=== PATIENT | female | born 1945 | race Caucasian/White ===

== ENCOUNTER 2016-09-09 11:01 | Outpatient (RCR) | payer MEDICARE, OTHER | END 2016-10-20 10:29 | disposition home or self-care (01) | LOC: PT 11:01 | DX: M99.06 Segmental and somatic dysfunction of lower extremity (principal); M54.5 Low back pain; M47.816 Spondylosis without myelopathy or radiculopathy, lumbar region ==

== ENCOUNTER → 2016-12-06 | Outpatient (CLI) | payer MEDICARE, OTHER | LOC: RAD 16:18 | DX: M54.30 Sciatica, unspecified side (principal) ==

== ENCOUNTER 2017-06-19 18:50 | Emergency (ER) | payer MEDICARE, OTHER ==
[2017-06-19] MEDS ORDERED: TYLENOL 500MG500 MG PO (19:02)
[2017-06-19] MEDS ORDERED: NORCO 325 MG-51 TA1 PO (20:30)
[2017-06-19 20:37] VITALS: BP 152/80
== END 2017-06-19 20:44 | disposition home or self-care (01) ==
LOC: ED 18:50
DX: S52.502A Unspecified fracture of the lower end of left radius, initial encounter for closed fracture (principal); W11.XXXA Fall on and from ladder, initial encounter; Y92.009 Unspecified place in unspecified non-institutional (private) residence as the place of occurrence of the external cause; M81.0 Age-related osteoporosis without current pathological fracture; T39.1X1A Poisoning by 4-Aminophenol derivatives, accidental (unintentional), initial encounter
CPT/HCPCS: A6448; J1885

== ENCOUNTER 2017-10-19 14:00 | Outpatient (RCR) | payer MEDICARE ==
[~2017-10-19 14:00] MED LIST: NORCO 325 MG-51 TA1 PO; TYLENOL 500MG500 MG PO
== END 2017-10-19 14:30 | disposition home or self-care (01) ==
LOC: OT 14:00
DX: S52.502D Unspecified fracture of the lower end of left radius, subsequent encounter for closed fracture with routine healing (principal)

== ENCOUNTER → 2021-05-14 | Outpatient (CLI) | payer MEDICARE, OTHER ==
[2021-05-14 15:56] LABS: BASO # 0.05 K/mm3 (0.02-0.10); EOS # 0.05 K/mm3 (0.04-0.40); EOS % 0.7 % (1.0-5.0); HEMATOCRIT 42.6 % (37.0-47.0); HEMOGLOBIN 13.5 g/dL (12.5-16.0); LYMPH# 1.12 K/mm3 (1.50-4.00); MEAN CELL VOLUME 101 fl (78-100); MEAN CORPUSCULAR HEMOGLOBIN 32 pg (27-31); MEAN CORPUSCULAR HGB CONC 32 g/dL (33-37); MEAN PLATELET VOLUME 10.6 fl (7.4-10.4); MONO # 0.68 K/mm3 (0.20-0.80); NEU # 4.96 K/mm3 (1.40-6.50); PLATELET COUNT 223 K/mm3 (130-400); RED BLOOD COUNT 4.22 M/mm3 (4.10-5.30); RED CELL DISTRIBUTION WIDTH 11.4 % (11.5-14.5); WHITE BLOOD COUNT 6.9 K/mm3 (4.8-10.8)
[2021-05-14 16:08] LABS: POTASSIUM 3.8 mmol/L (3.5-5.1)
[2021-05-14 16:09] LABS: ALBUMIN 4.7 g/dL (3.4-4.8)
[2021-05-14 16:11] LABS: TOTAL PROTEIN 7.7 g/dL (6.2-8.1)
[2021-05-14 16:13] LABS: TOTAL BILIRUBIN 0.5 mg/dL (0.2-1.2)
[2021-05-14 16:32] LABS: PARTIAL THROMBOPLASTIN TIME 20.9 SECONDS (21.0-32.0); PROTHROMBIN TIME 9.7 SECONDS (9.0-12.0)
== END ==
LOC: LAB 15:25
PROVIDERS: Physician Assistant
DX: Z01.818 Encounter for other preprocedural examination (principal); Z13.29 Encounter for screening for other suspected endocrine disorder; E78.5 Hyperlipidemia, unspecified; K90.9 Intestinal malabsorption, unspecified

== ENCOUNTER → 2021-05-21 | Outpatient (CLI) | payer MEDICARE, OTHER ==
[2021-05-21 22:25] LABS: PTH,INTACT 550.4 pg/mL (6.6-88.9)
[2021-05-22 14:05] LABS: CALCIUM, IONIZED, SERUM 1.98 mmol/L (1.19-1.41)
== END ==
LOC: LAB 14:08
PROVIDERS: Physician Assistant
DX: E83.52 Hypercalcemia (principal)

== ENCOUNTER → 2021-06-03 | Outpatient (CLI) | payer MEDICARE, OTHER | LOC: RAD 10:42 → MAMMO 10:45 | DX: M81.0 Age-related osteoporosis without current pathological fracture (principal) ==

== ENCOUNTER → 2021-08-21 | Outpatient (CLI) | payer MEDICARE, OTHER ==
[2021-08-21 13:39] LABS: ALBUMIN 4.3 g/dL (3.4-4.8); POTASSIUM 3.6 mmol/L (3.5-5.1)
[2021-08-21 13:41] LABS: CALCIUM 8.7 mg/dL (8.3-10.5)
[2021-08-21 13:42] LABS: TOTAL PROTEIN 6.9 g/dL (6.2-8.1)
[2021-08-21 13:44] LABS: TOTAL BILIRUBIN 0.4 mg/dL (0.2-1.2)
== END ==
LOC: LAB 13:02
DX: E21.3 Hyperparathyroidism, unspecified (principal); M81.0 Age-related osteoporosis without current pathological fracture

== ENCOUNTER → 2021-11-19 | Outpatient (CLI) | payer MEDICARE, OTHER ==
[2021-11-19 14:54] LABS: ALBUMIN 4.5 g/dL (3.4-4.8); POTASSIUM 3.6 mmol/L (3.5-5.1)
[2021-11-19 14:55] LABS: CALCIUM 9.7 mg/dL (8.3-10.5)
[2021-11-19 14:58] LABS: TOTAL BILIRUBIN 0.6 mg/dL (0.2-1.2)
[2021-11-19 23:03] LABS: PTH,INTACT 55.5 pg/mL (6.6-88.9)
== END ==
LOC: LAB 14:29
DX: E21.3 Hyperparathyroidism, unspecified (principal); M81.0 Age-related osteoporosis without current pathological fracture

== ENCOUNTER → 2022-06-14 | Day surgery (SDC) | payer MEDICARE, OTHER | LOC: MSO 08:05 | DX: C44.42 Squamous cell carcinoma of skin of scalp and neck (principal) | CPT/HCPCS: J1885; J2250; J2405; J2704; J3010; J7120 ==

== ENCOUNTER → 2023-09-16 | Outpatient (CLI) | payer MEDICARE, OTHER ==
[2023-09-16 15:21] LABS: CALCIUM 9.3 mg/dL (8.3-10.5)
== END ==
LOC: LAB 14:53
PROVIDERS: Internal Medicine Endocrinology, Diabetes & Metabolism
DX: M81.0 Age-related osteoporosis without current pathological fracture (principal)

== ENCOUNTER → 2024-04-19 | Outpatient (CLI) | payer MEDICARE, OTHER | LOC: LAB 14:34 | DX: L30.9 Dermatitis, unspecified (principal) ==